=== PATIENT | female | born 1980 | race Caucasian/White ===

== ENCOUNTER → 2017-01-26 | Outpatient (CLI) | payer BC ==
--- NOTE | 2017-01-27 07:33 | XR ---
EXAMINATION TYPE: XR chest 2V DATE OF EXAM ORDERED: 01/26/2017 11:55 AM HISTORY: R05 cough. REFERENCE: None. FINDINGS: The lungs are clear. Pleural spaces are clear. Heart size is normal. IMPRESSION: NORMAL CHEST.
== END | disposition home or self-care (01) ==
LOC: RADXRYALE 11:44
PROVIDERS: ATTEND Internal Medicine
DX: R05 Cough (principal)
CPT/HCPCS: 71020

== ENCOUNTER → 2018-08-24 | Outpatient (CLI) | payer BC ==
--- NOTE | 2018-08-27 11:02 | MM ---
Reason for exam: screening (asymptomatic). Last mammogram was performed 3 years ago. History: Taking hormonal contraceptives for 15 years. Physical Findings: A clinical breast exam by your physician is recommended on an annual basis and results should be correlated with mammographic findings. MG 3D Screening Mammo W/Cad Bilateral CC and MLO view(s) were taken. Prior study comparison: September 02, 2015, bilateral MG screening mammo w CAD. The breast tissue is heterogeneously dense. This may lower the sensitivity of mammography. Finding: There are typically benign diffuse/scattered calcifications in both breasts. No suspicious abnormality. No significant changes in finding since September 02, 2015. ASSESSMENT: Benign, BI-RAD 2 RECOMMENDATION: Routine screening mammogram of both breasts in 1 year.
== END | disposition home or self-care (01) ==
LOC: RADMAMWWP 09:07
PROVIDERS: ATTEND Obstetrics & Gynecology
DX: Z12.31 Encounter for screening mammogram for malignant neoplasm of breast (principal)
CPT/HCPCS: 77063; 77067

== ENCOUNTER → 2019-11-26 | Outpatient (CLI) | payer BC ==
--- NOTE | 2019-11-27 14:12 | MM ---
Reason for exam: screening (asymptomatic). Last mammogram was performed 1 year and 3 months ago. History: Taking hormonal contraceptives for 21 years beginning at age 18. Physical Findings: A clinical breast exam by your physician is recommended on an annual basis and results should be correlated with mammographic findings. MG 3D Screening Mammo W/Cad Bilateral CC and MLO view(s) were taken. Prior study comparison: August 24, 2018, bilateral MG 3d screening mammo w/cad. September 02, 2015, bilateral MG screening mammo w CAD. The breast tissue is heterogeneously dense. This may lower the sensitivity of mammography. There is chronic nodularity in the left upper outer quadrant posterior breast. Faint grouped calcifications 11 o'clock right breast not seen on 2014. ASSESSMENT: Incomplete: need additional imaging evaluation, BI-RAD 0 RECOMMENDATION: Special view mammogram of the right breast. (magnification views) If lesion persists on supplemental views, image directed ultrasound is recommended. [facility] will attempt to contact patient to return for supplemental views and ultrasound if indicated.
== END | disposition home or self-care (01) ==
LOC: RADMAMWWP 09:26
PROVIDERS: ATTEND Obstetrics & Gynecology
DX: Z12.31 Encounter for screening mammogram for malignant neoplasm of breast (principal)
CPT/HCPCS: 77063; 77067

== ENCOUNTER → 2019-12-09 | Outpatient (CLI) | payer BC ==
--- NOTE | 2019-12-10 09:32 | MM ---
Reason for exam: additional evaluation requested from abnormal screening. Last mammogram was performed less than 1 month ago. History: Taking hormonal contraceptives for 21 years beginning at age 18. Physical Findings: Nurse did not find any significant physical abnormalities on exam. MG 3D Work Up W/Cad RT CC with magnification, ML with magnification, and ML view(s) were taken of the right breast. Prior study comparison: November 26, 2019, bilateral MG 3d screening mammo w/cad. August 24, 2018, bilateral MG 3d screening mammo w/cad. Indeterminate suspicious microcalcifications upper outer right breast 5.7cm from nipple. These results were verbally communicated with the patient and result sheet given to the patient on 12/09/19. ASSESSMENT: Suspicious, BI-RAD 4 RECOMMENDATION: Stereotactic core biopsy of the right breast. Called Dr. Engle's office with mammographic findings and has scheduled an appointment for the patient for 01/02/20 at 8:[address] Kimbrough. Biopsy scheduled for 12/13/19 at 10:20. PRELIMINARY REPORT CALLED AND FAXED TO DR. KIMBROUGH ON 12/10/19.
== END | disposition home or self-care (01) ==
LOC: RADMAMWWP 14:16
PROVIDERS: ATTEND Obstetrics & Gynecology
DX: R92.8 Other abnormal and inconclusive findings on diagnostic imaging of breast (principal)
CPT/HCPCS: 77061; 77065

== ENCOUNTER → 2019-12-13 | Day surgery (SDC) | payer BC ==
[2019-12-13 10:11] VITALS: RESP 16; TEMP 98
[2019-12-13 12:35] VITALS: BP 130/85; PULSE 76
--- NOTE | 2019-12-13 12:52 | MM ---
EXAMINATION TYPE: MG stereo VAD BX RT DATE OF EXAM: 12/13/2019 COMPARISON: Prior mammograms December 09, 2019 and older mammograms. CLINICAL HISTORY: Abnormal mammogram. TECHNIQUE: Stereotactic guided core biopsy of right breast with clip placement and follow-up two-view mammogram.. FINDINGS: The procedure of stereotactic guided core biopsy was explained to the patient. Benefits, alternatives, and risks were discussed. An informed consent was then obtained. The shortness pathway for biopsy was first attempted. Similar distance pathways noted with lateral and cranial approach. Calcifications are faint and were difficult to visualize using craniocaudal compression from a outer approach. The Superior approach using lateral compression was utilized. I performed the localization, then performed the remainder of the procedure. A vacuum assisted biopsy gun was used to obtain multiple core samples. The patient tolerated the procedure well without any immediate complication. The patient was kept in the radiology department for short stay after the procedure and then discharged home in stable condition. Targeted calcifications are identified in specimen mammogram. Post biopsy mammogram shows the clip to appear in satisfactory position relative to the targeted area of concern on the preprocedure images. IMPRESSION: SUCCESSFUL, UNCOMPLICATED STEREOTACTIC GUIDED CORE BIOPSY OF AREA OF CONCERN IN THE RIGHT BREAST, FULL PATHOLOGY RESULTS TO FOLLOW. Low to intermediate index of suspicion noted at time procedure. Pathology Results: Benign RIGHT BREAST, STEREOTACTIC CORE BIOPSY: Fibrocystic changes including columnar cell hyperplasia with intraluminal calcifications, fibrosis, cysts and sclerosing adenosis. Recommendation Follow up mammogram of the right breast in 6 months. [facility]
== END ==
LOC: RADMAMWWP 09:03
PROVIDERS: ATTEND Surgery
DX: N62 Hypertrophy of breast (principal); N60.21 Fibroadenosis of right breast; N60.31 Fibrosclerosis of right breast
CPT/HCPCS: 88305; 19081; A4648; J2001

== ENCOUNTER 2020-02-05 07:16 | Day surgery (SDC) | payer BC ==
[2020-02-03 08:59] VITALS: BMI 23.9
[~2020-02-05 07:16] MED LIST: LACTATED RINGERS 1,000 ML IV SCH; LIDOCAINE 1% (10MG/ML) FOR IV START INTRADERMA PRN
[2020-02-05 07:41] VITALS: TEMP 97.2
[2020-02-05] MEDS ORDERED: ONDANSETRON 4 MG/2 ML VIAL IVP ONE (07:53)
[2020-02-05] MEDS ORDERED: fentaNYL (PF) 50 MCG/ML 2 ML AMP ONE (08:02)
[2020-02-05] MEDS ORDERED: MIDAZOLAM 2 MG/2 ML VIAL ONE (08:02)
[2020-02-05] MEDS ORDERED: PROPOFOL 10 MG/ML 20 ML VIAL IV ONE (08:02)
--- NOTE | 2020-02-05 08:31 | P.PCN ---
Date of Procedure: 02/05/20 Procedure(s) Performed: BRIEF HISTORY: Patient is a 39-year-old pleasant white female with long-standing history of ulcerative colitis scheduled scheduled for an elective colonoscopy as a part of surveillance for colorectal neoplasia. She is presently on no maintenance medications. PROCEDURE PERFORMED: Colonoscopy with random biopsies. PREOPERATIVE DIAGNOSIS: Long-standing history of ulcerative colitis. IV sedation per Anesthesia. PROCEDURE: After informed consent was obtained, the patient, was brought into the endoscopy unit. IV sedation was administered by Anesthesia under continuous monitoring. Digital rectal examination was normal. Initially the Olympus CF-160 flexible video colonoscope was then inserted in the rectum, gradually advanced into the cecum without any difficulty. Careful examination was performed as the scope was gradually being withdrawn. Ileocecal valve and the appendiceal orifice were visualized and appeared normal. Prep was excellent. Patchy areas of mild erythema with granular mucosa noted in the base of the cecum/ascending colon and descending colon consistent with mild active colitis. Rest of the mucosa of the cecum, ascending colon, transverse colon, descending colon, sigmoid colon, and rectum appeared normal. Random biopsies were done from the cecum to the rectum at every 10 cm into well. Retroflexion was performed in the rectum and no lesions were seen. The patient tolerated the procedure well. IMPRESSION: Patchy areas of erythema noted in the cecum/ascending colon and the descending colon to the stomach mild active colitis No evidence of colorectal neoplasia RECOMMENDATIONS: Findings of this examination were discussed with the patient as well as a family. She was advised to follow with the biopsy results. If the biopsy does not show any evidence of dysplasia, she can have a repeat colonoscopy in 2 years Recommended that she started back on oral mesalamine this time as a maintenance medication for ulcerative colitis..
[2020-02-05 08:43] VITALS: BP 116/68; PULSE 77; RESP 14
== END 2020-02-05 09:14 | disposition home or self-care (01) ==
LOC: ORWHC2ENDO 07:16
PROVIDERS: ATTEND Internal Medicine Gastroenterology
DX: K51.90 Ulcerative colitis, unspecified, without complications (principal); Z79.3 Long term (current) use of hormonal contraceptives; Z98.890 Other specified postprocedural states
CPT/HCPCS: 81025; 88305; 45380; J2250; J2405; J3010; J2704

== ENCOUNTER → 2020-06-03 | Outpatient (CLI) | payer BC, OTHER ==
--- NOTE | 2020-06-03 09:01 | MM ---
Reason for exam: follow-up at short interval from prior study. Last mammogram was performed 6 months ago. History: Benign MG stereo VAD BX RT of the right breast, December 13, 2019. Taking hormonal contraceptives for 21 years beginning at age 18. Physical Findings: Nurse did not find any significant physical abnormalities on exam. MG 3D Diag Mammo W/Cad RT CC and MLO view(s) were taken of the right breast. Prior study comparison: December 09, 2019, right breast MG 3d work up w/cad RT. November 26, 2019, bilateral MG 3d screening mammo w/cad. The breast tissue is heterogeneously dense. This may lower the sensitivity of mammography. Stable benign calcifications. Previous mammotome biopsy in the right breast. No significant new findings when compared with previous films. These results were verbally communicated with the patient and result sheet given to the patient on 06/03/20. ASSESSMENT: Benign, BI-RAD 2 RECOMMENDATION: Return to routine screening mammogram schedule for both breasts. Back on schedule.
== END | disposition home or self-care (01) ==
LOC: RADMAMWWP 08:20
PROVIDERS: ATTEND Surgery
DX: R92.8 Other abnormal and inconclusive findings on diagnostic imaging of breast (principal)
CPT/HCPCS: 77061; 77065

== ENCOUNTER → 2021-02-02 | Outpatient (CLI) | payer OTHER ==
--- NOTE | 2021-02-04 08:28 | MM ---
Reason for exam: screening (asymptomatic). Last mammogram was performed 8 months ago. History: Benign MG stereo VAD BX RT of the right breast, December 13, 2019. Taking hormonal contraceptives for 21 years beginning at age 18. Physical Findings: A clinical breast exam by your physician is recommended on an annual basis and results should be correlated with mammographic findings. MG 3D Screening Mammo W/Cad Bilateral CC and MLO view(s) were taken. Prior study comparison: June 03, 2020, right breast MG 3d diag mammo w/cad RT. December 09, 2019, right breast MG 3d work up w/cad RT. There is chronic nodularity in the left breast. No significant changes when compared with prior studies. ASSESSMENT: Benign, BI-RAD 2 RECOMMENDATION: Routine screening mammogram of both breasts in 1 year.
== END ==
LOC: RADMAMWWP 09:03
PROVIDERS: ATTEND Obstetrics & Gynecology
DX: Z12.31 Encounter for screening mammogram for malignant neoplasm of breast (principal)
CPT/HCPCS: 77063; 77067

== ENCOUNTER → 2022-02-03 | Outpatient (CLI) | payer OTHER ==
--- NOTE | 2022-02-08 13:29 | MM ---
Reason for exam: screening (asymptomatic). Last mammogram was performed 1 year ago. History: Family history of breast cancer in grandmother. Benign MG stereo VAD BX RT of the right breast, December 13, 2019. Taking hormonal contraceptives for 21 years beginning at age 18. Physical Findings: A clinical breast exam by your physician is recommended on an annual basis and results should be correlated with mammographic findings. MG 3D Screening Mammo W/Cad Bilateral CC and MLO view(s) were taken. Prior study comparison: February 02, 2021, bilateral MG 3d screening mammo w/cad. June 03, 2020, right breast MG 3d diag mammo w/cad RT. The breast tissue is heterogeneously dense. This may lower the sensitivity of mammography. There are benign appearing round calcifications bilaterally. Previous mammotome biopsy in the right breast. There is chronic nodularity in the left axilla, stable. There is no discrete abnormality. ASSESSMENT: Benign, BI-RAD 2 RECOMMENDATION: Routine screening mammogram of both breasts in 1 year.
== END | disposition home or self-care (01) ==
LOC: RADMAMWWP 08:58
PROVIDERS: ATTEND Obstetrics & Gynecology
DX: Z12.31 Encounter for screening mammogram for malignant neoplasm of breast (principal); Z80.3 Family history of malignant neoplasm of breast
CPT/HCPCS: 77063; 77067

== ENCOUNTER 2022-03-30 09:28 | Day surgery (SDC) | payer OTHER ==
[2022-03-28 15:40] VITALS: BMI 24.7
[2022-03-30] MEDS ORDERED: LACTATED RINGERS 1,000 ML IV SCH (10:11)
[2022-03-30] MEDS ORDERED: LIDOCAINE 1% (10MG/ML) FOR IV START INTRADERMA PRN (10:11)
[2022-03-30 10:20] VITALS: TEMP 97.3
[2022-03-30] MEDS ORDERED: ONDANSETRON 4 MG/2 ML VIAL ONE (11:04)
[2022-03-30] MEDS ORDERED: ONDANSETRON 4 MG/2 ML VIAL IVP ONE (11:05)
[2022-03-30] MEDS ORDERED: LIDOCAINE 2% INJ 20 MG/ML (2 ML VIAL) ONE (11:06)
[2022-03-30] MEDS ORDERED: PROPOFOL 10 MG/ML 20 ML VIAL IV ONE (11:06)
--- NOTE | 2022-03-30 11:47 | P.PCN ---
Date of Procedure: 03/30/22 Procedure(s) Performed: BRIEF HISTORY: Patient is a 41-year-old pleasant white female scheduled for an elective colonoscopy as a part of surveillance of long-standing history of ulcerative colitis diagnosed in 2012. PROCEDURE PERFORMED: Colonoscopy with random biopsy. PREOPERATIVE DIAGNOSIS: Long-standing history of ulcerative colitis diagnosed in 2012.. IV sedation per Anesthesia. PROCEDURE: After informed consent was obtained, the patient, was brought into the endoscopy unit. IV sedation was administered by Anesthesia under continuous monitoring. Digital rectal examination was normal. Initially the Olympus CF-160 flexible video colonoscope was then inserted in the rectum, gradually advanced into the cecum without any difficulty. Careful examination was performed as the scope was gradually being withdrawn. Ileocecal valve and the appendiceal orifice were visualized and appeared normal. Prep was excellent. Mucosa of the cecum, ascending colon, transverse colon, descending colon, sigmoid colon, and rectum appeared normal. Random biopsies were done from the cecum to rectum to rule out dysplasia Retroflexion was performed in the rectum and no lesions were seen. The patient tolerated the procedure well. IMPRESSION: Normal-appearing colon from rectum to cecum with no evidence of a ctive colitis or colorectal neoplasia. RECOMMENDATIONS: Findings of this examination were discussed with the patient as well as a family. She was advised to follow with the biopsy results and if the biopsies are negative she can have a repeat colonoscopy in 2 years.
[2022-03-30 12:07] VITALS: BP 121/78; PULSE 82; RESP 16
== END 2022-03-30 12:30 | disposition home or self-care (01) ==
LOC: ORWHC2ENDO 09:28
PROVIDERS: ATTEND Internal Medicine Gastroenterology
DX: K51.90 Ulcerative colitis, unspecified, without complications (principal); Z79.3 Long term (current) use of hormonal contraceptives; Z79.82 Long term (current) use of aspirin; Z98.890 Other specified postprocedural states
CPT/HCPCS: 81025; 88305; 45380; J2405; J2704; J2001

== ENCOUNTER → 2023-02-20 | Outpatient (CLI) | payer OTHER ==
--- NOTE | 2023-02-21 08:43 | MM ---
Reason for Exam: Screening (asymptomatic). Last mammogram was performed 1 year(s) and 1 month(s) ago. Patient History: Menarche at age 12. First Full-Term at age 28. Currently using Hormonal Contraceptives, beginning at age 18 for 21 years. 12/13/2019, Benign Core Biopsy on the right side. Maternal grandmother had breast cancer. Last menstrual period: 02/19/2023 Risk Values: Azalia 5 year model risk: 1.2%. NCI Lifetime model risk: 13.2%. Prior Study Comparison: 06/03/2020 Right Diagnostic Mammogram, [facility]. 02/02/2021 Bilateral Screening Mammogram, [facility]. 02/03/2022 Bilateral Screening Mammogram, [facility]. Tissue Density: The breast tissue is heterogeneously dense. This may lower the sensitivity of mammography. Findings: Analyzed By CAD. There is no suspicious group of microcalcifications or new suspicious mass in either breast. Overall Assessment: Negative, BI-RAD 1 Management: Screening Mammogram of both breasts in 1 year. A clinical breast exam by your physician is recommended on an annual basis and results should be correlated with mammographic findings. Electronically signed and approved by: Miguelangel Merlos M.D. Radiologis
== END | disposition home or self-care (01) ==
LOC: RADMAMWWP 11:32
PROVIDERS: ATTEND Obstetrics & Gynecology
DX: Z12.31 Encounter for screening mammogram for malignant neoplasm of breast (principal); Z80.3 Family history of malignant neoplasm of breast
CPT/HCPCS: 77063; 77067

== ENCOUNTER → 2024-02-22 | Outpatient (CLI) | payer OTHER ==
--- NOTE | 2024-02-22 13:20 | MM ---
Reason for Exam: Screening (asymptomatic). Last screening mammogram was performed 12 month(s) ago. Patient History: Menarche at age 12. First Full-Term at age 28. Currently using Hormonal Contraceptives, beginning at age 18 for 21 years. 12/13/2019, Benign Core Biopsy on the right side. Maternal grandmother had breast cancer. Risk Values: Azalia 5 year model risk: 1.3%. NCI Lifetime model risk: 13.0%. Prior Study Comparison: 02/02/2021 Bilateral Screening Mammogram, [facility]. 02/03/2022 Bilateral Screening Mammogram, [facility]. 02/20/2023 Bilateral MG 3D screening mammo w/cad, [facility]. Tissue Density: The breasts are heterogeneously dense, which may obscure small masses. Findings: Analyzed By CAD. There is no suspicious group of microcalcifications or new suspicious mass in either breast. Overall Assessment: Benign, BI-RAD 2 Management: Screening Mammogram of both breasts in 1 year. . Patient should continue monthly self-breast exams. A clinical breast exam by your physician is recommended on an annual basis. This exam should not preclude additional follow-up of suspicious palpable abnormalities. Note on Azalia scores and lifetime risk: 1. A Azalia score greater than 3% is considered moderate risk. If this is the case, consider specialist referral to assess eligibility for a risk reducing agent. 2. If overall lifetime risk for the development of breast cancer is 20% or higher, the patient may qualify for future screening with alternating mammogram and breast MRI. Electronically signed and approved by: Miguelangel Merlos M.D. Radiologis
== END | disposition home or self-care (01) ==
LOC: RADMAMWWP 08:04
PROVIDERS: ATTEND Obstetrics & Gynecology
DX: Z12.31 Encounter for screening mammogram for malignant neoplasm of breast (principal); Z80.3 Family history of malignant neoplasm of breast
CPT/HCPCS: 77063; 77067

== ENCOUNTER → 2024-10-21 | Outpatient (CLI) | payer OTHER ==
[2024-10-21 16:14] LABS: T4, Free (Free Thyroxine) 1.11 ng/dL (0.80-1.80)
== END | disposition home or self-care (01) ==
LOC: LABWHC1 10:38
PROVIDERS: ATTEND Obstetrics & Gynecology
DX: E04.9 Nontoxic goiter, unspecified (principal)
CPT/HCPCS: 36415; 84439; 84443; 84481; 86376

== ENCOUNTER → 2024-10-23 | Outpatient (CLI) | payer OTHER ==
--- NOTE | 2024-10-23 11:50 | US ---
EXAMINATION TYPE: US thyroid st tissue head/neck DATE OF EXAM: 10/23/2024 COMPARISON: NONE CLINICAL INDICATION: Female, 44 years old with history of E04.9 Enlarged thyroid; enlarged thyroid pe r Dr TECHNIQUE: Grayscale and color Doppler imaging of the thyroid gland. FINDINGS: GLAND SIZE: Right Lobe: 5.2 x 1.6 x 1.9 cm Overall Parenchyma: homogeneous Left Lobe: 4.8 x 2.2 x 2.5 cm Overall Parenchyma: heterogeneous Isthmus Thickness: 0.4 cm NODULES RIGHT: # of nodules measured on right: 0 LEFT: # of nodules measured on left: 1 1. 2.7 X 1.5 x 1.8 cm, mid mid, TIRADS Score: 6 TIRADS Category 4: Composition: Solid or almost completely solid (2 points). Echogenicity: Hypoechoic (2 points). Shape: Wider than tall (0 points). Margin: Lobulated or irregular (2 points). Echogenic foci: None or large comet-tail artifacts (0 points) Recommendation: If >1.5cm: FNA; If >1cm: Follow up at 1,2, 3,5 years ISTHMUS: # of nodules measured in the isthmus: 0 Bilateral neck scanned, no evidence of lymphadenopathy. IMPRESSION: 1. Left thyroid nodule which has likely peripheral calcification which limits evaluation but is thou ght to meet criteria for tissue sampling if not already performed. 2. Heterogenous left thyroid gland correlate with serum markers for thyroiditis. 3. [facility], , 10/23/2024 11:47 AM
== END | disposition home or self-care (01) ==
LOC: RADUSWWP 10:18
PROVIDERS: ATTEND Obstetrics & Gynecology
DX: E06.9 Thyroiditis, unspecified (principal)
CPT/HCPCS: 76536

== ENCOUNTER 2025-01-29 10:06 | Day surgery (SDC) | payer OTHER ==
[2025-01-29 10:48] VITALS: RESP 16; TEMP 98.4
[2025-01-29] MEDS: IV FLUID CONTINUATION 1,000 ML IV ONE ×2 (10:59→11:19)
[2025-01-29] MEDS: ONDANSETRON 4 MG/2 ML VIAL IVP STA (11:04)
[2025-01-29] MEDS ORDERED: PROPOFOL 10 MG/ML 20 ML VIAL IV ONE (11:20)
[2025-01-29] MEDS ORDERED: LIDOCAINE 1% INJ 10MG/ML (20 ML MDV) ONE (11:20)
--- NOTE | 2025-01-29 11:37 | P.PCN ---
Date of Procedure: 01/29/25 Procedure(s) Performed: BRIEF HISTORY: Patient is a 44-year-old pleasant white female scheduled for an elective colonoscopy as a part of screening for longstanding show positive colitis diagnosed in 2012. She is in clinical remission. PROCEDURE PERFORMED: Colonoscopy with biopsy.. PREOPERATIVE DIAGNOSIS: Screening for longstanding history of ulcerative colitis. IV sedation per Anesthesia. PROCEDURE: After informed consent was obtained, the patient, was brought into the endoscopy unit. IV sedation was administered by Anesthesia under continuous monitoring. Digital rectal examination was normal. Initially the Olympus CF-160 flexible video colonoscope was then inserted in the rectum, gradually advanced into the cecum without any difficulty. Careful examination was performed as the scope was gradually being withdrawn. Ileocecal valve and the appendiceal orifice were visualized and appeared normal. Prep was excellent. Mucosa of the cecum, ascending colon, transverse colon, descending colon, sigmoid colon, and rectum appeared normal. Random biopsies were done from cecum to rectum at every 10 cm intervals retroflexion was performed in the rectum and no lesions were seen. The patient tolerated the procedure well. IMPRESSION: Normal-appearing colon from rectum to cecum no evidence of active colitis or colorectal neoplasia. RECOMMENDATIONS: Findings of this examination were discussed with the patient as well as her family. She was advised to follow-up with the biopsy results. If the biopsy does not show any evidence of dysplasia, recommended repeat colonoscopy in 3 years..
[2025-01-29 11:50] VITALS: PULSE 84
[2025-01-29 12:07] VITALS: BP 110/76
== END 2025-01-29 12:39 | disposition home or self-care (01) ==
LOC: ORWHC2ENDO 10:06
PROVIDERS: ATTEND Internal Medicine Gastroenterology
DX: K51.90 Ulcerative colitis, unspecified, without complications (principal); Z79.899 Other long term (current) drug therapy
CPT/HCPCS: 81025; 45380; J2405; J2003; J2704; 88305

== ENCOUNTER 2025-02-07 07:58 | Day surgery (SDC) | payer OTHER ==
[2025-02-07 09:09] VITALS: TEMP 98.8
[2025-02-07 10:04] VITALS: BP 127/78; PULSE 77; RESP 16
--- NOTE | 2025-02-07 12:04 | US ---
EXAMINATION TYPE: US FNA thyroid first lesion DATE OF EXAM: 02/07/2025 10:17 AM CLINICAL INDICATION:Female, 44 years old with history of E04.1 NONTOXIC SINGLE THYROID NODULE; , thyr oid nodule. COMPARISON: Thyroid ultrasound October 23, 2024 ATTENDING: Dr. Nir Montes PROCEDURE: Informed consent was obtained. The risks and benefits of the procedure were discussed with the patien t. The site was marked. Timeout procedure was performed Ultrasound imaging demonstrates a large left-sided solid nodule with irregular margins and peripheral rim calcification The patient was prepped, draped in the usual sterile fashion, and locally anesthetized with 1% lidoca ine. Five fine needle aspiration were then attempted with a 25 gauge needle. Sampling was difficult due to location and thick peripheral calcification making needle passes difficult. Samples were sent to the pathology department for further analysis. Patient tolerated the procedure without incident a nd was sent home in stable condition. IMPRESSION: Successful ultrasound guided fine needle aspiration. I suspect this is a TR 5 not a TR 4 lesion. If the Pathology results are benign I would feel this is discordant and would advise repeat sampling and/or further investigation with nuclear medicine evalua tion to see if this is a hot or cold dominant nodule. [facility], , 02/07/2025 12:01 PM
== END 2025-02-07 09:50 | disposition home or self-care (01) ==
LOC: RADPROMAIN 07:58
PROVIDERS: ATTEND Surgery
DX: E04.1 Nontoxic single thyroid nodule (principal)
CPT/HCPCS: 10005; 88173; 88305

== ENCOUNTER → 2025-02-24 | Outpatient (CLI) | payer OTHER ==
--- NOTE | 2025-02-24 13:34 | MM ---
Reason for Exam: Screening (asymptomatic). Last screening mammogram was performed 12 month(s) ago. Patient History: Menarche at age 12. First Full-Term at age 28. Currently using Hormonal Contraceptives, beginning at age 18 for 21 years. 12/13/2019, Benign Core Biopsy on the right side. Maternal grandmother had breast cancer. Risk Values: Azalia 5 year model risk: 1.3%. NCI Lifetime model risk: 12.9%. Prior Study Comparison: 02/03/2022 Bilateral Screening Mammogram, [facility]. 02/20/2023 Bilateral MG 3D screening mammo w/cad, [facility]. 02/22/2024 Bilateral MG 3D screening mammo w/cad, [facility]. Tissue Density: The breasts are heterogeneously dense, which may obscure small masses. Findings: Analyzed By CAD. Microclip right breast from prior biopsy. There is no suspicious group of microcalcifications or new suspicious mass in either breast. Overall Assessment: Negative, BI-RAD 1 Management: Screening Mammogram of both breasts in 1 year. Patient should continue monthly self-breast exams. A clinical breast exam by your physician is recommended on an annual basis. This exam should not preclude additional follow-up of suspicious palpable abnormalities. Note on Azalia scores and lifetime risk: 1. A Azalia score greater than 3% is considered moderate risk. If this is the case, consider specialist referral to assess eligibility for a risk reducing agent. 2. If overall lifetime risk for the development of breast cancer is 20% or higher, the patient may qualify for future screening with alternating mammogram and breast MRI. [facility], , 02/24/2025 1:31 PM. Electronically signed and approved by: Giovana Li M.D. Radiologist
== END | disposition home or self-care (01) ==
LOC: RADMAMWWP 09:50
PROVIDERS: ATTEND Obstetrics & Gynecology
DX: Z12.31 Encounter for screening mammogram for malignant neoplasm of breast (principal); R92.333 Mammographic heterogeneous density, bilateral breasts; Z80.3 Family history of malignant neoplasm of breast; Z79.3 Long term (current) use of hormonal contraceptives
CPT/HCPCS: 77063; 77067

== ENCOUNTER → 2025-05-27 | Outpatient (CLI) | payer OTHER ==
--- NOTE | 2025-05-27 11:03 | US ---
EXAMINATION TYPE: US thyroid st tissue head/neck DATE OF EXAM: 05/27/2025 COMPARISON: 02/07/2025 CLINICAL INDICATION: Female, 44 years old with history of C73 MALIGNANT NEOPLASM OF THYROID GLAND; le ft thyroid CA - ectomy, f/u TECHNIQUE: Grayscale and color Doppler imaging of the thyroid gland. FINDINGS: GLAND SIZE: Right Lobe: 4.3 x 1.1 x 2.1cm Overall Parenchyma: homogeneous Left Lobe: Surgically absent Isthmus Thickness: 0.4cm NODULES RIGHT: # of nodules measured on right: 0 LEFT: surgically absent ISTHMUS: # of nodules measured in the isthmus: 0 Bilateral neck scanned, no evidence of lymphadenopathy. IMPRESSION: Surgically absent left thyroid gland. No right thyroid nodules. TI-RADS assessment score and recommendation for follow-up based on appropriate scoring and treatment protocols. TR1 Benign No FNA TR2 Not suspicious No FNA TR3: If nodule size is ? 2.5 cm, FNA is recommended. If nodule size is ? 1.5 cm, follow-up imaging at 1, 3, and 5 years is recommended. TR4: If nodule size is ? 1.5 cm, FNA is recommended. If nodule size is ? 1.0 cm, follow-up imaging at 1, 2, 3, and 5 years is recommended. TR5: If nodule size is ? 1.0 cm, FNA is recommended. If nodule size is ? 0.5 cm, annual follow-up for up to 5 years is recommended. TR 1 thyroid nodules have a 0.3 % risk of malignancy. TR 2 thyroid nodules have a 1.5 % risk of malignancy. TR 3 thyroid nodules have a 4.8 % risk of malignancy. TR 4 thyroid nodules have a 9.1 % risk of malignancy. TR 5 thyroid nodules have a 35 % risk of malignancy. [email or web address] [facility], , 05/27/2025 11:01 AM
== END | disposition home or self-care (01) ==
LOC: RADUSWWP 10:21
PROVIDERS: ATTEND Internal Medicine
DX: C73 Malignant neoplasm of thyroid gland (principal)
CPT/HCPCS: 76536